=== PATIENT | female | born 1995 | race Caucasian/White ===

== ENCOUNTER 2021-11-27 18:03 | Emergency (ER) | payer MEDICAID, OTHER ==
[~2021-11-27] VITALS: Ht 160 cm; Wt 82.0 kg
[~2021-11-27 18:03] MED LIST: NO KNOWN ALLERGIES; PRENATAL
[2021-11-27] MEDS ORDERED: TETANUS, DIPHTHERIA, PERTUSSIS VAC/PF 0.5ML (>10YR OLD) IM ONE (22:45)
[2021-11-27] MEDS ORDERED: AMOX-424 MT (23:46)
[2021-11-27 23:55] VITALS: BP 113/62
== END 2021-11-28 | disposition home or self-care (01) ==
LOC: ER 18:03
DX: S91.351A Open bite, right foot, initial encounter (principal); W54.0XXA Bitten by dog, initial encounter; Y93.89 Activity, other specified; Y92.89 Other specified places as the place of occurrence of the external cause; Y99.9 Unspecified external cause status; Z97.5 Presence of (intrauterine) contraceptive device
CPT/HCPCS: 73630; 90471; 90715; 99283

== ENCOUNTER 2023-06-12 09:56 | Emergency (ER) | payer OTHER ==
[~2023-06-12] VITALS: Ht 160 cm; Wt 81.6 kg
[~2023-06-12 09:56] MED LIST changes: +AMOX-424 MT
[2023-06-12 10:27] VITALS: TEMP 97.9; O2SAT 98
[2023-06-12] MEDS ORDERED: LIDOCAINE 5% PATCH TOP SCH (10:30)
[2023-06-12] MEDS ORDERED: IBUPROFEN 600MG TABLET PO ONE (10:30)
[2023-06-12] MEDS ORDERED: NAPR220C61 MT (11:38)
[2023-06-12] MEDS: IBUPROFEN 600MG TABLET PO NR ×2 (12:30→12:42)
[2023-06-12 12:42] VITALS: BP 113/62; PULSE 92; RESP 16
== END 2023-06-12 13:17 | disposition home or self-care (01) ==
LOC: ER 09:56
DX: S20.219A Contusion of unspecified front wall of thorax, initial encounter (principal); M25.562 Pain in left knee; V49.9XXA Car occupant (driver) (passenger) injured in unspecified traffic accident, initial encounter; Y93.89 Activity, other specified; Y92.89 Other specified places as the place of occurrence of the external cause; Y99.8 Other external cause status
CPT/HCPCS: 71045; 73030; 73560; 81025; 99284

== ENCOUNTER 2023-07-30 15:30 | Emergency (ER) | payer OTHER ==
[~2023-07-30] VITALS: Ht 160 cm; Wt 81.6 kg
[~2023-07-30 15:30] MED LIST changes: +NAPR220C61 MT
[2023-07-30 15:56] VITALS: O2SAT 94
[2023-07-30] MEDS ORDERED: KETOROLAC 30MG/ML VIAL IM ONE (16:30)
[2023-07-30] MEDS ORDERED: NAPR-1176 MT (16:59)
[2023-07-30] MEDS ORDERED: LIDO700A15 TP (16:59)
[2023-07-30 18:22] VITALS: BP 115/78; PULSE 83; RESP 16; TEMP 98.2
== END 2023-07-30 18:23 | disposition home or self-care (01) ==
LOC: ER 15:30
DX: S80.02XA Contusion of left knee, initial encounter (principal); M54.50 Low back pain, unspecified; V49.9XXA Car occupant (driver) (passenger) injured in unspecified traffic accident, initial encounter; Y93.89 Activity, other specified; Y92.89 Other specified places as the place of occurrence of the external cause; Y99.8 Other external cause status
CPT/HCPCS: 99283; 96372; J1885